=== PATIENT | male | born 1985 | race Two or more races ===

== ENCOUNTER 2020-10-03 11:34 | Emergency (ER) | payer MEDICAID ==
[~2020-10-03] VITALS: Ht 177.8 cm; Wt 100.0 kg
[2020-10-03] MEDS ORDERED: MORPHINE SULFATE 4 MG/ML CPJ (NOT FOR IM USE) IV STA (12:10)
[2020-10-03] MEDS ORDERED: ONDANSETRON HCL 4MG/2ML INJ IV STA (12:10)
[2020-10-03] MEDS ORDERED: SODIUM CHLORIDE 0.9% 1,000 ML IV ONE (12:15)
[2020-10-03 12:52] LABS: BASOPHILS % 0.5 % (0.0-2.0); HEMATOCRIT. 41.9 % (42.0-52.0); HEMOGLOBIN. 14.8 g/dL (14.0-18.0); LYMPHOCYTES % 12.1 % (20.0-50.0); MEAN CORPUSCULAR HEMOGLOBIN 30.2 pg (28.0-32.0); MEAN CORPUSCULAR VOLUME 85.5 fL (80.0-94.0); MEAN PLATELET VOLUME 7.8 fl (7.4-10.4); NEUTROPHILS % 84.4 % (40.0-76.0); PLATELET 302 x1000/uL (130-400)
[2020-10-03 13:00] LABS: CHLORIDE 110 mEq/L (98-107)
[2020-10-03 13:03] LABS: PARTIAL THROMBOPLASTIN TIME 29.6 sec (23.4-31.0)
[2020-10-03] MEDS ORDERED: FAMO-135 PO (13:41)
[2020-10-03 13:59] VITALS: BP 168/70
[2020-10-03 14:28] LABS: CLARITY URINE CLEAR (CLEAR); COLOR URINE YELLOW (YELLOW); KETONES URINE 2+ (NEGATIVE); LEUKOCYTE ESTERASE URINE NEGATIVE (NEGATIVE); NITRITE URINE NEGATIVE (NEGATIVE); OCCULT BLOOD URINE NEGATIVE (NEGATIVE); PH URINE >=9.0 (4.5-8.0); PROTEIN URINE NEGATIVE (NEGATIVE); SPECIFIC GRAVITY URINE 1.021 (1.005-1.030); UROBILINOGEN URINE 0.2 E.U./dL (0.2-1.0)
[2020-10-03 15:09] LABS: *AMPHETAMINES SCREEN URINE NEGATIVE (NEGATIVE); *BARBITURATES SCREEN URINE NEGATIVE (NEGATIVE); *BENZODIAZEPINES SCREEN URINE NEGATIVE (NEGATIVE); *COCAINE SCREEN URINE NEGATIVE (NEGATIVE); METHADONE URINE SCREEN NEGATIVE (NEGATIVE); OPIATES URINE SCREEN NEGATIVE (NEGATIVE)
[2020-10-03 15:10] LABS: CANNABINOID URINE SCREEN PRESUMTIVE POSITIVE (NEGATIVE); PHENCYCLIDINE URINE SCREEN NEGATIVE (NEGATIVE)
== END 2020-10-03 16:16 | disposition home or self-care (01) ==
LOC: ER 11:34
DX: R10.13 Epigastric pain (principal); R19.7 Diarrhea, unspecified
CPT/HCPCS: 36415; 71045; 74176; 80053; 80305; 81003; 83690; 84484; 85025; 85610; 85730; 93005; 96361; 96374; 96375; 99285; J2270; J2405; J7030; Z7610

== ENCOUNTER 2023-09-12 19:38 | Emergency (ER) | payer BC, MEDICAID ==
[~2023-09-12] VITALS: Ht 175.3 cm; Wt 123.0 kg
[~2023-09-12 19:38] MED LIST: FAMO-135 PO
[2023-09-12 19:46] VITALS: BP 171/90; PULSE 80; RESP 16; TEMP 98.2; O2SAT 100; O2SAT 98
[2023-09-12] MEDS ORDERED: ACETAMINOPHEN 325MG TABLET PO ONE (20:00)
[2023-09-12] MEDS ORDERED: METH-653 MT (20:22)
[2023-09-12] MEDS: ACETAMINOPHEN 325MG TABLET PO NR (21:15)
== END 2023-09-12 21:20 | disposition home or self-care (01) ==
LOC: ER 19:38
DX: R51.9 Headache, unspecified (principal); M54.2 Cervicalgia; E04.1 Nontoxic single thyroid nodule; M54.50 Low back pain, unspecified; V49.49XA Driver injured in collision with other motor vehicles in traffic accident, initial encounter; Y93.89 Activity, other specified; Y92.89 Other specified places as the place of occurrence of the external cause; Y99.8 Other external cause status
CPT/HCPCS: 99284